=== PATIENT | female | born 1995 | race Caucasian/White ===

== ENCOUNTER 2019-11-16 16:37 | Emergency (ER) | payer SELFPAY ==
[2019-11-16 16:45] VITALS: BP 136/96; PULSE 116; RESP 16; TEMP 36.3; O2SAT 98; BMI 27.3
--- NOTE | 2019-11-16 17:06 | W.ED.SKABFB ---
HPI - Skin/Abscess/Foreign Bdy General: Chief complaint: Skin/Abscess/Foreign Body Stated complaint: BUMP BEHIND EAR Time Seen by Provider: 11/16/19 17:06 Source: patient Mode of arrival: ambulatory Limitations: no limitations History of Present Illness: HPI narrative: Patient is a 24-year-old female who presents to ED today with complaints of a lesion to the left side of her posterior neck/head. Patient states she initially noticed the lesion began as a pimple-like spot but has since worsened. She was seen by PCP yesterday and placed on Augmentin. Patient tells me she feels like she is worse today. She has not been running fevers. Patient and her seem concerned about a possible tick bite although there was no known bite. Patient reports no history of MRSA. Patient denies headache. She is having some neck pain however maintains range of motion MD complaint: abscess/boil Onset (ago): day(s) Tetanus up to date: yes Location: neck Pain Consistency: constant Relieving factors: none Exacerbating factors: none Context: none Associated symptoms: Reports no associated symptoms; Deny chills, fever(s), nausea or vomiting Treatments prior to arrival: antibiotic (has had one dose) Review of Systems Const: Denies: fever(s), chills, body aches, change in appetite, change in weight, malaise or night sweats Eyes: Denies: change in vision or blurry vision ENMT: Denies: odynophagia Card: Denies: chest pain Resp: Denies: dyspnea GI: Denies: abdominal pain, nausea or vomiting Musc: Reports: neck pain (overlying abscess); Denies: back pain, extremity pain, extremity swelling, joint pain, joint swelling or joint redness Skin/Breast: Reports: other (abscess) Neuro: Denies: headache(s), numbness in extremities, weakness in extremities or sensory changes Physical Exam Const: COMMON NORMALS: no acute distress, average body habitus, patient oriented x3, no limitations, healthy appearing, alert and well nourished Neck/C-Spine: COMMON NORMALS: full ROM and no lymphadenopathy OTHER: pt has an area to her L occipital region that measures approximately 4cm x 4cm; area is slightly erythematous and is firm/indurated; there is no fluctuance or drainage at this time Neuro: COMMON NORMALS: patient oriented x3 SENSORIUM/ORIENTATION: Yes alert Course Vital Signs: Vital signs: Vital Signs Temperature 97.3 F L 11/16/19 16:45 Pulse Rate 116 H 11/16/19 16:45 Respiratory Rate 16 11/16/19 16:45 Blood Pressure 136/96 11/16/19 16:45 Pulse Oximetry 98 11/16/19 16:45 MDM - Skin/Abscess/Foreign Bdy MDM Narrative: Medical decision making narrative: Patient and are very concerned for tick illness. She has no other systemic symptoms. Lesion is not consistent with an erythema migrans lesion. Nonetheless I will place her on Doxycycline to cover for this-it would also provide good coverage for staph as well which is clinically what I feel she has. Strict return to ED precautions given. Abscess not amendable to I&D at this time however she may need to return at a later date for this if abscess worsens. Discharge Plan Discharge Patient Disposition: Home Clinical Impression: Abscess of skin of neck Condition: Stable Prescriptions: New doxycycline monohydrate 100 mg capsule 100 mg PO Q12H 10 Days Qty: 20 RF: 0 Discharge Orders: Discharge Order (Routine); Ordered 11/16/19 Ordered By: Liliana Rangel Referrals: Delroy Lynn DO [Physician] - Patient Instructions: Abscess (ED), Skin Abscess Activity Restrictions/Additional Instructions: Begin antibiotics immediately. You need to return to the ED in 24-48 hours if abscess continues to worsening in size or pain or if you begin running fevers of 100.4 or greater. 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
[2019-11-16] MEDS: clindamycin 150 mg/mL SDV 6 mL 600 MG IM (17:38)
== END 2019-11-16 17:54 | disposition home or self-care (01) ==
LOC: ER 17:29
PROVIDERS: Emergency Provider Physician Assistant; PCP Family Medicine
DX: L02.11 Cutaneous abscess of neck (principal)
CPT/HCPCS: 12345; 96372; 99281; 99283; J3490

== ENCOUNTER → 2022-06-03 11:26 | Outpatient (BNVA) | payer OTHER, SELFPAY | PROVIDERS: PCP Family Medicine; Visit Provider Family Medicine | DX: S69.91XA Unspecified injury of right wrist, hand and finger(s), initial encounter (principal); X58.XXXA Exposure to other specified factors, initial encounter | CPT/HCPCS: 73110 ==